=== PATIENT | male | born 1950 | race Caucasian/White ===

== ENCOUNTER → 2018-05-14 09:36 | Outpatient (CLI) | payer MEDICARE, SELFPAY ==
--- NOTE | 2018-05-14 09:52 | RAD_ITS ---
STUDY: X-RAY - LEFT SHOULDER REASON FOR EXAM: Male, 68 years old. Shoulder pain. No known injury. TECHNIQUE: 4 view(s) of the shoulder. COMPARISON: None. FINDINGS: There is minimal cephalad migration of the humeral head without significant narrowing of the space between the acromion process and humeral head. Normal acromioclavicular joint. Normal acromion. Normal humeral head and visualized proximal humerus. The soft tissue structures are unremarkable. Normal visualized pulmonary apex. RAD/Shoulder min 2 Views IMPRESSION: No significant abnormality is seen. Electronically Signed: Robert Pratt MD at 8:33 EST Tel , Service support ,
--- NOTE | 2018-05-14 09:52 | RAD_ITS ---
STUDY: X-RAY - RIGHT SHOULDER REASON FOR EXAM: Male, 68 years old. Shoulder pain. No known injury. TECHNIQUE: 4 view(s) of the shoulder. COMPARISON: None. FINDINGS: Normal glenohumeral articulation. There is degenerative arthrosis of the acromioclavicular joint. Normal acromion. Normal humeral head and visualized proximal humerus. The soft tissue structures are unremarkable. Normal visualized pulmonary apex. 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 Electronically Signed: Robert Pratt MD at 8:36 EST Tel , Service support ,
[2018-05-14 13:13] LABS: Absolute Lymphocyte Count 1.16 X10^3/ul (0.83-4.51); Absolute Neutrophil Count 3.7 X10^3/uL (2.0-7.7); Basophil# 0.02 X10^3/uL; Basophil% 0.4 % (0-1); Eosinophil# 0.12 X10^3/uL; Eosinophils% 2.2 % (0-5); Hematocrit 42.8 % (40-54); Hemoglobin 14.1 g/dl (13.0-16.5); Lymphocyte # 1.16 X10^3/ul (4.0); Mean Corp Hgb Conc 32.9 g/gl (32-36); Mean Corpuscular Hgb 30.5 pg (27.0-32.0); Mean Corpuscular Volume 92.4 fL (80-94); Mean Platelet Vol. 10.5 fl (6.2-12.0); Monocyte# 0.55 X10^3/uL; Neutrophil # 3.65 X10^3/uL (2.7-7.7); Platelet Count 201 K/mm3 (150-450); RBC Distribution Width CV 12.7 % (11.6-14.6); Red Blood Count 4.63 M/mm3 (4.6-6.2); White Blood Count 5.5 K/mm3 (4.4-11.0)
[2018-05-14 13:14] LABS: POSITIVE COUNT NO; POSITIVE DIFFERENTIAL NO; POSITIVE MORPHOLOGY NO
[2018-05-14 13:23] LABS: Vitamin D,25 Hydroxy 27.9 ng/mL (29.95-100.01)
[2018-05-14 13:24] LABS: ALB/GLOB Ratio 1.1 RATIO (0.9-2.4); AST(SGOT) 19 U/L (15-37); Alanine Aminotransfer ALT/SGPT 40 U/L (16-61); Albumin, Serum 3.7 g/dL (3.2-5.0); Alkaline Phosphatase 70 U/L (45-117); Anion Gap 9 (5-15); BUN 17 mg/dL (7-18); BUN/Creat Ratio 16.5 RATIO (10-20); Chloride 102 mmol/L (98-107); Creatinine, Serum 1.03 mg/dL (0.70-1.30); EST Glomerular Filtration Rate 76 mL/min (>60); Est Glom Filt Rate - Afr Amer 92 mL/min (>60); Globulin 3.3 g/dL (2.2-4.2); Glucose 74 mg/dL (74-106); Potassium 3.9 mmol/L (3.5-5.1); Sodium Level 142 mmol/L (136-145); Thyroid Stim Hormone (TSH) 1.09 uIU/mL (0.358-3.74)
--- OUTSIDE RECORDS SUMMARY | 2018-07-18 17:05 | XMS RPT_ITS ---
:1950 Author Organization [facility] Care Team Providers Name Role Phone Tyson, Andre Chi Attending Unavailable Tyson, Andre Chi Primary Care Unavailable Tyson, Andre Chi Referring Unavailable Tyson, Andre Chi Attending Unavailable Tyson, Andre Chi Referring Unavailable Tyson, Andre Chi Primary Care Unavailable PROBLEMS PROBLEMS DATE TYPE CONDITION / CODE ATTENDING STATUS SOURCE 05/14/2018 Unknown E55.9 - Vitamin D Tyson, Andre Chi Active [place] deficiency, Community unspecified / Hospital E55.9(ICD-10) Repository 05/14/2018 Unknown I10 - Essential Tyson, Andre Chi Active [place] (primary) [facility] hypertension / Hospital I10(ICD-10) Repository 05/14/2018 Unknown Z12.5 - Encounter Tyson, Andre Chi Active [place] for screening for [facility] malignant neoplasm [facility] prostate / Repository Z12.5(ICD-10) PROCEDURES PROCEDURES No Procedure Records FoundRESULTS RESULTS SHOULDER MIN 2 VIEWS Observed: 05/14/2018 Status: F Source: [place] [facility] RE[facility]IT[facility] Imaging Services [address] [place] [address] Shoulder min 2 Views MR#: [id number] Acct: [id number] Name: REYNALDO SEVILLA Rep #: [id number] : 1950 M 68 From: Robert Pratt MD PCP: Tyson NORTH,Andre Grayson Status: REG CLI Study: Shoulder min 2 Views Date of Exam: 05/14/18 Exam# [id number] Ordering Dr: Andre Mehta MD STUDY: X-RAY - LEFT SHOULDER REASON FOR EXAM: Male, 68 years old. Shoulder pain. No known injury. TECHNIQUE: 4 view(s) of the shoulder. COMPARISON: None. FINDINGS: There is minimal cephalad migration of the humeral head without significant narrowing of the space between the acromion process and humeral head. Normal acromioclavicular joint. Normal acromion. Normal humeral head and visualized proximal humerus. The soft tissue structures are unremarkable. Normal visualized pulmonary apex. RAD/Shoulder min 2 Views IMPRESSION: No significant abnormality is seen. Electronically Signed: Robert Pratt MD at 8:33 EST Tel , Service support , CC: Andre Mehta MD Hospice Clinical Manager: Signed SHOULDER MIN 2 VIEWS Observed: 05/14/2018 Status: F Source: [place] 9:53 AM [facility] REPOSITORY [facility] Imaging Services [address] [place], [place] [id number] Shoulder min 2 Views MR#: [id number] Acct: [id number] Name: REYNALDO SEVILLA Rep #: [id number] : 1950 68 From: Robert Pratt MD PCP: Andre Mehta MD, Chi Status: REG CLI Study: Shoulder min 2 Views Date of Exam: 05/14/18 Exam# [id number] Ordering Dr: Andre Mehta MD STUDY: X-RAY - RIGHT SHOULDER REASON FOR EXAM: Male, 68 years old. Shoulder pain. No known injury. TECHNIQUE: 4 view(s) of the shoulder. COMPARISON: None. FINDINGS: Normal glenohumeral articulation. There is degenerative arthrosis of the acromioclavicular joint. Normal acromion. Normal humeral head and visualized proximal humerus. The soft tissue structures are unremarkable. Normal visualized pulmonary apex. 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 Electronically Signed: Robert Pratt MD at 8:36 EST Tel , Service support , CC: Andre Mehta MD Hospice Clinical Manager: Signed CBC W/DIFF, AUTOMATED Collected: 05/14/2018 Status: F Source: [place] 9:41 AM [facility] REPOSITORY TYPE CODE TESTS RESULT OUT OF RANGE REFERENCE UNITS LAB L100.1000 4.4-11.0 K/mm3 Normal WBC 5.5 LAB L100.1200 4.6-6.2 M/mm3 Normal RBC 4.63 LAB L100.1300 13.0-16.5 g/dl Normal HGB 14.1 LAB L100.1400 40-54 % Normal HCT 42.8 LAB L100.1500 80-94 fL Normal MCV 92.4 LAB L100.1600 27.0-32.0 pg Normal MCH 30.5 LAB L100.1700 32-36 g/gl Normal MCHC 32.9 LAB L100.1810 11.6-14.6 % Normal RDW CV 12.7 LAB L100.1820 35.1-43.9 fl Normal RDW SD 42.0 LAB L100.1900 150-450 K/mm3 Normal PLT 201 LAB L100.2000 6.2-12.0 fl Normal MPV 10.5 LAB L100.2100 47-70 % Normal NEUT% 66.0 LAB L100.2200 19-41 % Normal LY% 21.0 LAB L100.2300 0-10 % Normal MONO% 10.0 LAB L100.2400 0-5 % Normal EO% 2.2 LAB L100.2500 0-1 % Normal BASO% 0.4 LAB L100.2550 0.0-0.9 % Normal IM GRAN % 0.400 Result Comment: IG% - Immature Granulocytes (promyelocytes, myelocytes and metamyelocytes) > 1% indicates that a LEFT SHIFT is Present. LAB L100.2620 2.0-7.7 X10 3/uL Normal Absolute Neut 3.7 LAB L100.2720 0.83-4.51 X10 3/ul Normal Absolute Lymph 1.16 Performed By: #### L100.0100 #### [facility] Laboratory [address] [place], [address] VITAMIN D,25 HYDROXY Collected: 05/14/2018 Status: F Source: [place] 9:41 AM [facility] REPOSITORY TYPE CODE TESTS RESULT OUT OF REFERENCE UNITS RANGE LAB L506.1000 29.95-100.01 ng/mL Low Vitamin D 27.9 25-OH Result Comment: Vitamin D 25(OH) Status Range Deficiency <20 ng/mL (50nmol/L) Insuffciency 20 - 30 ng/mL (50 - 75 nmol/L) Sufficiency 30 - 100 ng/mL (75 - 250 nmol/L) Toxicity >100 ng/mL (>250 nmol/L) Performed By: #### L506.1000 #### [facility] [address] [place], [address] COMPREHENSIVE METABOLIC Collected: 05/14/2018 Status: F [facility] AM [facility] REPOSITORY TYPE CODE TESTS RESULT OUT OF RANGE REFERENCE UNITS LAB L501.0100 74-106 mg/dL Normal GLU 74 Result Comment: Please note revised GLUCOSE reference range effective 2017. LAB L501.1000 7-18 mg/dL Normal BUN 17 LAB L501.1100 0.70-1.30 mg/dL Normal CREAT,SERUM 1.03 Result Comment: The validity of the calculated GFR AND GFRAA in patients over 70 years has not been determined. Clinical correlation is essential. LAB L501.1110 >60 mL/min Normal EST GFR 76 Result Comment: Non- GFR Calc LAB L501.1115 >60 mL/min Normal EST GFR - AA 92 Result Comment: GFR Calc LAB L501.1300 10-20 RATIO Normal BUN/CRE 16.5 LAB L501.1500 6.4-8.2 g/dL T Normal PROT 7.0 LAB L501.1800 3.2-5.0 g/dL Normal ALB 3.7 LAB L501.1950 2.2-4.2 g/dL Normal GLOB 3.3 LAB L501.2000 0.9-2.4 RATIO Normal A/G 1.1 LAB L501.2200 8.5-10.1 mg/dL CA Normal 9.0 LAB L501.4100 15-37 U/L Normal AST 19 LAB L501.4305 45-117 U/L Normal ALK P 70 LAB L501.4405 16-61 U/L Normal ALT 40 LAB L501.4600 0.20-1.00 mg/dL T Normal BILI 0.70 LAB L501.5300 136-145 mmol/L NA Normal 142 LAB L501.5600 3.5-5.1 mmol/L K Normal 3.9 LAB L501.5900 98-107 mmol/L CL Normal 102 LAB L501.6100 21.0-32.0 mmol/L Normal CO2 31.0 LAB L501.6200 5-15 Normal GAP 9 Performed By: #### L500.4050, L501.9520, L501.9910 #### [facility] [address] [place], [place], [id number] THYROID STIM HORMONE Collected: 05/14/2018 Status: F Source: [place] ([facility]) 9:41 AM [facility] REPOSITORY TYPE CODE TESTS RESULT OUT OF RANGE REFERENCE UNITS LAB L501.9520 0.358-3.74 uIU/mL Normal TSH 1.09 Performed By: #### L500.4050, L501.9520, L501.9910 #### [facility] [address] [place], [place], [id number] PSA,TOTAL - ANNUAL Collected: 05/14/2018 Status: F Source: [place] SCREEN 9:41 AM [facility] REPOSITORY TYPE CODE TESTS RESULT OUT OF RANGE REFERENCE UNITS LAB L501.9910 0.00-4.00 ng/mL Normal PSA,TOT 0.50 SCREEN Result Comment: This test was performed using the TPSA assay method for the U*tique chemistry system. Values obtained with different assay methods cannot be used interchangably. When changing PSA assays in the course of monitoring a patient, additional sequential testing should be carried out to confirm baseline values. Performed By: #### L500.4050, L501.9520, L501.9910 #### [facility] [address] [place], [address] ALLERGIES ALLERGIES DATE TYPE / CODE NAME / CODE REACTION SEVERITY SOURCE 06/13/2015 Drug nitroglycer Anaphylaxis Unknown [facility] Allergy/4160 in/[id number] Hospital 72704(SNOMED 83(RXNORM) Repository CT) ENCOUNTERS ENCOUNTERS ADMIT/DISCHARGE ACCOUNT ADMITTING ENCOUNTER LOCATION SOURCE NUMBER CLASS 05/21/2018 [id number] Ambulatory [place] 0 [facility] ing:PT Repository 05/14/2018 [id number] Ambulatory [place] 7 [facility] ing:POLAB3 Repository PAYERS PAYERS ENCOUNTER GUARANTOR PAYER SUBSCRIBER SOURCE 05/21/2018 REYNALDO Massey [id number] Insurance:[facility]: Community SETTLERS MEDIC[id number] Repository [address]Ffd: 330 [id number] [phone] (HP) Date:[id number] [address] [address]KO: 05/21/2018 Secondary NOT GIVENUNK [place] Insurance:SELF PAY [facility] Number: Effective Repository Date:2018-05-18 05/14/2018 REYNALDO Pennyoster [id number] Insurance:[facility]: Community SETTLERS MEDICAREPolicy [id number] Number: Repository [address]Fvq: 330 [id number] [phone] (HP) Date:[id number] [address] [address]DC: 05/14/2018 Secondary NOT GIVENUNK [place] Insurance:SELF PAY [facility] Number: Effective Repository Date:2018-05-14
== END ==
PROVIDERS: Family Provider Family Medicine Geriatric Medicine; PCP Family Medicine Geriatric Medicine; Referring Provider Family Medicine Geriatric Medicine; Visit Provider Family Medicine Geriatric Medicine
DX: E55.9 Vitamin D deficiency, unspecified (principal); I10 Essential (primary) hypertension; Z12.5 Encounter for screening for malignant neoplasm of prostate; M75.50 Bursitis of unspecified shoulder
CPT/HCPCS: 36415; 73030; 80053; 82306; 84153; 84443; 85025; G0103

== ENCOUNTER 2018-06-25 08:30 | Outpatient (RCR) | payer MEDICARE, SELFPAY ==
--- NOTE | 2018-05-21 11:10 | HP.PTEVAL ---
Patient's Visit Information REYNALDO SEVILLA is a 68 year old M referred to Physical Therapy by Andre Mehta MD with a diagnosis of YFN ROTATOR CUFF TENDINOPATHY/SYNDROME. Date of Evaluation: 05/21/18 Physical Therapist: Edith Reilly PT, Cert MDT - Visit Plan Frequency: 2-3x /Week Duration: 4-6 Weeks Plan: MANUAL YFN SHOULDER MOBILIZATION AND PROM. POSTURE CORRECTION/STRENGTHENING, INSTRUCTION IN APPROPRIATE BODY MECHANICS AND ACTIVITY MODIFICATIONS. YFN SHOULDER MODALITIES NEEDED. YFN UE ROM, STRETCHING AND STRENGTHENING. HEP INSTRUCTION. PATIENT WILL NEED TO WORK AROUND HIS OUT OF TOWN SCHEDULE. CONSIDER AND DISCUSS DRY NEEDLING WITH PATIENT. - Subjective Findings: Diagnosis: YFN ROTATOR CUFF TENDINOPATHY/SYNDROME. 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 Disability: NO. Present symptoms: YFN SHOULDER PAIN. Present since: RIGHT SHOULDER PAIN STARTED ABOUT A YEAR ABO AND HAS GOT WORSE IN THE LAST MONTH OR SO. LEFT SHOULDER PAIN STARTED A COUPLE MONTHS AGO AND WORSENING. Pain Scale: Worst - 5/10Least - 0/10. Currently: 0/10. Commenced as a result of: NO APPARENT REASON. Symptoms at onset: RIGHT SHOULDER. Worse: BRINGING ARMS DOWN AFTER STRETCHING OVER-HEAD, REACHING UP, REACHING OUT TO THE SIDE. PUTTING SHIRT ON. TWISTING ARMS WHEN REACHING CERTAIN WAYS. Better: SOMETIMES REPETITION. Disturbed sleep: YES. Previous history/Previous treatment: UNREMARKABLE. Dizziness: NO. Tinnitis: NO. Nausea: NO. Shortness of Breath: NO. Difficulty Swollowing: NO. Gait: NORMAL. Accidents: NO. Unexplained weight loss: NO. Imaging: RECENT SHOULDER X-RAYS - LEFT SHOULDER X-RAY IN EMR IS NORMAL. PMH/Recent major surgery: HTN, HIGH CHOLESTEROL. LBP. NECK STIFFNESS THAT PATIENT RELATES TO RUNNING IN THE FAMILY. PLOF (Prior Level of Function): UNLIMITED - Objective Sitting Posture/Standing Posture: POOR. FORWARD HEAD AND ROUNDED SHOULDERS. NO TORTICOLLIS. Motor deficit: YFN UE STRENGTH 5/5 WITH MMT'ING IN AVAILABLE ROM EXCEPT RIGHT ER AND ABD 4-/5 AND LEFT 4/5. STRONG YFN KNOWLEDGE ARCHITECT STRENGTH 80+ LBS. ROM deficit: YFN UE'S WFL EXCEPT SHOULDERS FOLLOWS: RIGHT SHOULDER FLEX 140 DEG, IR 53 DEG AND ER 68 DEG. LEFT SHOULDER FLEX 163 DEG, IR 65 DEG AND ER 80 DEG. YFN SHOULDER ABD LIMITATION ALSO BUT NOT MEASURED. Cervical Mvmt Loss: Flex: NIL. Pro: NIL. Ext: MOD. Ret: MOD TO [place]. RSB: MOD. LSB: MOD TO [place]. R Rot: MOD. L Rot: MOD TO [place]. Postural strength: POOR - Goals Goal 1:: DECREASE C/O YFN SHOULDER PAIN Goal Time Frame: 4-6 Weeks Goal 2:: IMPROVE REACHING AND SLEEP FUNCTION Goal Time Frame: 4-6 Weeks Goal 3:: INDEP WITH HEP FOR CONTINUED IMPROVEMENT ONCE FORMAL PHYSICAL THERAPY CONCLUDES. Goal Time Frame: 4-6 Weeks - Rehabilitation Potential Rehabilitation Potential: Good - Anticipated Interventions Patient/Client Instruction: Educate patient on: Condition, Plan of Care, Risk Factors, Benefits of Fitness Program For the Purpose of:: To improve self management Therapeutic Exercise to Include: Strength training, Body mechanics, Postural training For the Purpose of:: To decrease pain, To increase ROM, To improve muscle performance and motor function, To increase tolerance to activity/condition/position, To improve ability of physical actions for home/community/work/leisure Manual Therapy Techniques to Include: Mobilization, Passive ROM, Functional dry needling, Soft tissue mobilization For the Purpose of:: To decrease pain, To increase ROM Cryotherapy (ice pack, ice massage): Yes Thermo therapy (hot pack): Yes Ultrasound (thermal/non thermal): Yes For the Purpose of:: To decrease pain, To increase ROM, To improve nutrient delivery to tissue Thank you for the opportunity to evaluate your patient. For Medicare and Medicare HMO plans, please review the plan of care and approve it. It will need to be FAXED BACK to us at [phone] for Medicare purposes. For Medicare only, by signing this I certify the plan of care. Please let me know if there are questions or concerns regarding this plan of care. Physician Signature: Date:
--- NOTE | 2018-06-18 10:06 | HP.PTREVAL ---
Andre Mehta MD, It has been my pleasure to treat REYNALDO SEVILLA over the last 5 visits for YFN ROTATOR CUFF TENDINOPATHY/SYNDROME. Please see the progress note below for an update on the physical therapy plan of care! Subjective: I THINK I AM GETTING A LITTLE BIT BETTER. NOW I CAN GLENDY GET MY ARMS UP IF I AM VERY CAREFUL. DID EX'S OVER TWO WEEKS OF VACATION. PATIENT REPORTS HE CAN ALSO TELL AN IMPROVEMENT IN HIS POSTURE. Objective/Function: OBJECTIVELY THERE ARE MINIMAL IMPROVEMENTS SEEN SINCE EVAL BUT PATIENT IS REPORTING A LITTLE BIT OF IMPROVEMENT AND HE IS BECOMING INDEP WITH A HEP. HE APPEARED TO RESPOND WELL TO US TODAY. SLOW PROGRESS IS BEING MADE TOWARD PT GOALS OF DECREASING PAIN AND HEP BUT NOT IN TERMS OF FUNCTION. QUICK DASH QUESTIONAIRE SCORE HAS WORSENED FROM 14 TO 21 Plan Plan: DISCHARGE INDEP EX'S TO HEP AND FOCUS ON MANUAL THERAPY IN CLINIC FOR YFN SHOULDER MOBS AND ROM. ASSESS RESPONSE TO US AND USE SHOULDER MODALITIES NEEDED. DISCUSS POSSIBLE BENEFITS OF DRY NEEDING WITH PATIENT. ADD CERVICAL REPEATED RETRACTION IN SITTING EX TOLERATED. Goals Goal 1:: DECREASE C/O YFN SHOULDER PAIN Goal Time Frame: 4-6 Weeks Goal Progress: Progressing Goal 2:: IMPROVE REACHING AND SLEEP FUNCTION Goal Time Frame: 4-6 Weeks Goal Progress: Not Progressing Goal 3:: INDEP WITH HEP FOR CONTINUED IMPROVEMENT ONCE FORMAL PHYSICAL THERAPY CONCLUDES. Goal Time Frame: 4-6 Weeks Goal Progress: Progressing Anticipated Interventions Patient/Client Instruction: Educate patient on: Condition, Plan of Care, Risk Factors, Benefits of Fitness Program For the Purpose of:: To improve self management Therapeutic Exercise to Include: Strength training, Body mechanics, Postural training For the Purpose of:: To decrease pain, To increase ROM, To improve muscle performance and motor function, To increase tolerance to activity/condition/position, To improve ability of physical actions for home/community/work/leisure Manual Therapy Techniques to Include: Mobilization, Passive ROM, Functional dry needling, Soft tissue mobilization For the Purpose of:: To decrease pain, To increase ROM Cryotherapy (ice pack, ice massage): Yes Thermo therapy (hot pack): Yes Ultrasound (thermal/non thermal): Yes For the Purpose of:: To decrease pain, To increase ROM, To improve nutrient delivery to tissue Please do not hesitate to contact me at [phone] by phone or if you have questions or concerns regarding this new plan of care! Sincerely, Edith Reilly, PT, Cert MDT
--- NOTE | 2018-06-25 09:34 | HP.PTDCSUM_ITS ---
HP - PT D/C Summary It has been my pleasure to treat REYNALDO SEVILLA under orders from Andre Mehta MD, for the diagnosis of YFN ROTATOR CUFF TENDINOPATHY/SYNDROME for a total of 8 visit(s). Discharge Date: Please see the following information for a summary of their discharge status. - Subjective Subjective: PATIENT REPORTS THE PAIN IN HIS SHOULDERS INS'T DISTURBING HIS SLEEP NOW. PATIENT REPORTS THE PAIN STILL ONLY COMES WITH CERTAIN MVMTS WITH CERTAIN SPEEDS. CONSIDERING SEEING A SHOULDER SPECIALIST. PATIENT REPORTS HIS LEFT ARM IS A LITTLE LOOSER AND HE DOESN'T HAVE THE PAIN AT NIGHT SLEEPING NOW. I THINK MY POSTURE HAS IMPROVED SOME. STATES HE IS DOING HIS EX'S ON A REGULAR BASIS. STATES HE IS ALSO WORKING ON HIS POSTURE AND USING SUPPORT IN LOW BACK. - Pain RIGHT SHOULDER Pain Intensity (Out of 10): 0 LEFT SHOULDER Pain Intensity (Out of 10): 0 - Overall Improvement % Improvement: 20 - Objective Objective/Function: DECREASED YFN SHOULDER ROM WITH TESTING TODAY BUT PATIENT REPORTS HIS ROM CHANGES RANDOMLY. OVER ALL HE FEELS SOME IMPROVEMENT AND NOT WORSE. PATIENT STILL HAS SIGNIFICANT YFN SHOULDER DYSFUNCTION. HIS CERVICAL ROM HAS ACTUALLY IMPROVED SOME BUT STILL LIMITED. UPON EXAM TODAY: Motor deficit: YFN UE STRENGTH 5/5 WITH MMT'ING IN AVAILABLE ROM EXCEPT RIGHT ER AND ABD 4-/5 AND LEFT 4/5. 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 ROM deficit: YFN UE'S WFL EXCEPT SHOULDERS FOLLOWS: RIGHT SHOULDER FLEX 143 DEG, IR 58 DEG AND ER 55 DEG. LEFT SHOULDER FLEX 154 DEG, IR 65 DEG AND ER 43 DEG. YFN SHOULDER ABD SIGNIFICANT LIMITATION TO LESS THAN 90 DEG YFN ACTIVELY IN SITTING. Cervical Mvmt Loss: Flex: MIN. Pro: NIL. Ext: MOD. Ret: MOD TO DAVONTE. RSB: MOD. LSB: MOD. R Rot: MOD. L Rot: MOD. QUICK DASH QUESTIONAIRE SCORE HAS NOT IMPROVED. - Goals Goal 1:: DECREASE C/O YFN SHOULDER PAIN Goal Progress: Not Progressing Goal 2:: IMPROVE REACHING AND SLEEP FUNCTION Goal Progress: Not Progressing Goal 3:: INDEP WITH HEP FOR CONTINUED IMPROVEMENT ONCE FORMAL PHYSICAL THERAPY CONCLUDES. Goal Progress: Not Progressing - Plan Plan: D/C TO HEP AND PHYSICIAN FOLLOW UP DO CONTINUED SIGNIFICANT YFN SHOULDER, POSTURE AND NECK DYSFUNCTION. PATIENT AGREEABLE TO DISCHARGE. - D/C Information If there are questions or concerns regarding this patient's physical therapy, please feel free to call me at [phone]. Thank you for the referral of this patient. Sincerely, Edith Reilly PT, Cert MDT
== END 2018-06-25 19:00 | disposition home or self-care (01) ==
LOC: PT 08:30
PROVIDERS: Family Provider Family Medicine Geriatric Medicine; PCP Family Medicine Geriatric Medicine; Referring Provider Family Medicine Geriatric Medicine; Visit Provider Family Medicine Geriatric Medicine
DX: M75.50 Bursitis of unspecified shoulder (principal)
CPT/HCPCS: 97035; 97110; 97140; 97161; 97530

== ENCOUNTER → 2018-08-02 | Outpatient (CLI) | payer MEDICARE, SELFPAY ==
--- NOTE | 2018-08-02 13:00 | MRI_ITS ---
STUDY: MRI RIGHT SHOULDER REASON FOR EXAM: Right shoulder pain for 5 months, no specific injury. TECHNIQUE: Standardized fat and water weighted pulse sequences were obtained in all 3 orthogonal planes. COMPARISON: Radiographs 05/14/2018. FINDINGS: There is mild supraspinatus tendinosis (T2 sagittal images 18, 19) without discrete tendon tear. Normal infraspinatus tendon. Normal subscapularis tendon. Normal teres minor tendon. Normal supraspinatus muscle. Normal infraspinatus muscle. Normal subscapularis muscle. Normal teres minor muscle. Normal glenohumeral articulation. There is very mild cystic change of the greater tuberosity. Normal biceps labral complex. Normal intracapsular long biceps tendon. Normal labrum. Normal capsulo- ligamentous complex. There is acromioclavicular arthrosis with undersurface osteophytes effacing the subacromial fat (T2 sagittal image 9). There is a Type II morphology (curved), with a neutral orientation. There is a small volume of subacromial-subdeltoid bursal fluid (T2 coronal images 13-15). Normal visualized coracohumeral and coracoacromial ligaments. Normal deltoid muscle. Normal trapezius muscle. MRI/Upper Ext Joint Only(Routine) IMPRESSION: Mild supraspinatus tendinosis without demonstrated rotator cuff tear. Acromioclavicular arthrosis. Mild subacromial-subdeltoid bursitis. Electronically Signed: Mauro Dos Santos MD at 14:31 EDT Tel , Service support ,
--- NOTE | 2018-08-02 13:45 | MRI_ITS ---
STUDY: MRI LEFT SHOULDER REASON FOR EXAM: Left shoulder pain for 5 months, no specific injury. TECHNIQUE: Standardized fat and water weighted pulse sequences were obtained in all 3 orthogonal planes. COMPARISON: Radiographs 05/14/2018. FINDINGS: There is mild supraspinatus tendinosis (proton density coronal images 13, 14) without discrete tendon tear. Normal infraspinatus tendon. Normal subscapularis tendon. Normal teres minor tendon. Normal supraspinatus muscle. Normal infraspinatus muscle. Normal subscapularis muscle. Normal teres minor muscle. Normal glenohumeral articulation. There is mild cystic change of the greater tuberosity. Normal biceps labral complex. Normal intracapsular long biceps tendon. Normal labrum. Normal capsulo- ligamentous complex. There is acromioclavicular arthrosis with small undersurface osteophytes of the distal clavicle effacing the subacromial fat (T2 sagittal images 9, 10). There is a Type I morphology (flat undersurface), with a neutral orientation. There is a small volume of subacromial-subdeltoid bursal fluid (T2 coronal images 10-12). Normal visualized coracohumeral and coracoacromial ligaments. Normal deltoid muscle. Normal trapezius muscle. MRI/Upper Ext Joint Only(Routine) IMPRESSION: Mild supraspinatus tendinosis without demonstrated rotator cuff tear. Acromioclavicular arthrosis. Mild subacromial-subdeltoid bursitis. Electronically Signed: Mauro Dos Santos MD at 14:36 EDT Tel , Service support ,
== END | disposition home or self-care (01) ==
PROVIDERS: Family Provider Family Medicine Geriatric Medicine; PCP Family Medicine Geriatric Medicine; Referring Provider Family Medicine Geriatric Medicine; Visit Provider Family Medicine Geriatric Medicine
DX: M75.100 Unspecified rotator cuff tear or rupture of unspecified shoulder, not specified as traumatic (principal); M25.519 Pain in unspecified shoulder
CPT/HCPCS: 73221

== ENCOUNTER → 2019-05-18 09:23 | Outpatient (CLI) | payer BC, SELFPAY ==
[2015-06-14 02:23] VITALS: BMI 22.5
[2019-05-18 12:16] LABS: Absolute Lymphocyte Count 1.06 X10^3/uL (0.83-4.51); Absolute Neutrophil Count 2.5 X10^3/uL (2.0-7.7); Basophil# 0.04 X10^3/uL; Basophil% 0.9 % (0-1); Eosinophil# 0.17 X10^3/uL; Hematocrit 45.9 % (40-54); Hemoglobin 15.1 g/dL (13.0-16.5); Lymphocyte # 1.06 X10^3/ul (4.0); Lymphocyte % 24.8 % (19-41); Mean Corp Hgb Conc 32.9 g/dL (32-36); Mean Corpuscular Hgb 30.4 pg (27.0-32.0); Mean Corpuscular Volume 92.5 fL (80-94); Mean Platelet Vol. 10.9 fl (6.2-12.0); Monocyte# 0.46 X10^3/uL; Monocyte% 10.8 % (0-10); NRBC Flagged by Analyzer 0 % (0-5); Neutrophil # 2.53 X10^3/uL (2.7-7.7); Neutrophil % 59.3 % (47-70); Platelet Count 218 K/mm3 (150-450); RBC Distribution Width CV 12.3 % (11.6-14.6); RBC Distribution Width SD 41.5 fl (35.1-43.9); Red Blood Count 4.96 M/mm3 (4.6-6.2); White Blood Count 4.3 K/mm3 (4.4-11.0)
[2019-05-18 12:35] LABS: ALB/GLOB Ratio 1.2 RATIO (0.9-2.4); AST(SGOT) 19 U/L (15-37); Alanine Aminotransfer ALT/SGPT 42 U/L (16-61); Albumin, Serum 3.7 g/dL (3.2-5.0); Alkaline Phosphatase 63 U/L (45-117); Anion Gap 2 (5-15); BUN 17 mg/dL (7-18); BUN/Creat Ratio 19.3 RATIO (10-20); Calcium,Total 8.9 mg/dL (8.5-10.1); Chloride 108 mmol/L (98-107); Creatinine, Serum 0.88 mg/dL (0.70-1.30); EST Glomerular Filtration Rate 91 mL/min (>60); Est Glom Filt Rate - Afr Amer 110 mL/min (>60); Globulin 3.2 g/dL (2.2-4.2); Glucose 91 mg/dL (74-106); Potassium 3.8 mmol/L (3.5-5.1); Protein, Total 6.9 g/dL (6.4-8.2); Sodium Level 140 mmol/L (136-145); Thyroid Stim Hormone (TSH) 1.28 uIU/mL (0.358-3.74)
== END ==
PROVIDERS: PCP Family Medicine Geriatric Medicine; Visit Provider Family Medicine Geriatric Medicine
DX: I10 Essential (primary) hypertension (principal); E55.9 Vitamin D deficiency, unspecified
CPT/HCPCS: 36415; 80053; 82306; 84443; 85025

== ENCOUNTER → 2020-05-23 09:07 | Outpatient (CLI) | payer BC, SELFPAY ==
[2020-05-23 12:11] LABS: Absolute Neutrophil Count 2.9 X10^3/uL (2.0-7.7); Basophil# 0.03 X10^3/uL; Basophil% 0.6 % (0-1); Eosinophil# 0.15 X10^3/uL; Eosinophils% 3.1 % (0-5); Hematocrit 44.5 % (40-54); Hemoglobin 14.2 g/dL (13.0-16.5); Lymphocyte % 26.9 % (19-41); Mean Corp Hgb Conc 31.9 g/dL (32-36); Mean Corpuscular Hgb 29.6 pg (27.0-32.0); Mean Corpuscular Volume 92.7 fL (80-94); Mean Platelet Vol. 10.8 fl (6.2-12.0); Monocyte# 0.45 X10^3/uL; Monocyte% 9.3 % (0-10); NRBC Flagged by Analyzer 0 % (0-5); Neutrophil # 2.89 X10^3/uL (2.7-7.7); Neutrophil % 59.7 % (47-70); Platelet Count 193 K/mm3 (150-450); RBC Distribution Width CV 12.3 % (11.6-14.6); RBC Distribution Width SD 42.5 fl (35.1-43.9); White Blood Count 4.8 K/mm3 (4.4-11.0)
[2020-05-23 12:38] LABS: Vitamin D,25 Hydroxy 34.6 ng/mL
[2020-05-23 12:52] LABS: ALB/GLOB Ratio 1.1 RATIO (0.9-2.4); AST(SGOT) 20 U/L (15-37); Alanine Aminotransfer ALT/SGPT 34 U/L (16-61); Albumin, Serum 3.6 g/dL (3.2-5.0); Alkaline Phosphatase 72 U/L (45-117); Anion Gap 6 (5-15); BUN 16 mg/dL (7-18); BUN/Creat Ratio 16.5 RATIO (10-20); Calcium,Total 8.9 mg/dL (8.5-10.1); Chloride 102 mmol/L (98-107); Creatinine, Serum 0.97 mg/dL (0.70-1.30); EST Glomerular Filtration Rate 81 mL/min (>60); Est Glom Filt Rate - Afr Amer 98 mL/min (>60); Globulin 3.3 g/dL (2.2-4.2); Glucose 75 mg/dL (74-106); Potassium 3.7 mmol/L (3.5-5.1); Protein, Total 6.9 g/dL (6.4-8.2); Sodium Level 139 mmol/L (136-145); Thyroid Stim Hormone (TSH) 1.68 uIU/mL (0.358-3.74)
== END ==
PROVIDERS: PCP Family Medicine Geriatric Medicine; Visit Provider Family Medicine Geriatric Medicine
DX: E55.9 Vitamin D deficiency, unspecified (principal); I10 Essential (primary) hypertension
CPT/HCPCS: 36415; 80053; 82306; 84443; 85025

== ENCOUNTER 2021-05-29 09:00 | Outpatient (CLI) | payer MEDICARE, SELFPAY ==
[2021-05-29 12:43] LABS: Absolute Lymphocyte Count 1.44 X10^3/uL (0.83-4.51); Basophil# 0.03 X10^3/uL; Basophil% 0.6 % (0-1); Eosinophil# 0.15 X10^3/uL; Eosinophils% 2.9 % (0-5); Hematocrit 41.7 % (40-54); Hemoglobin 14.1 g/dL (13.0-16.5); Lymphocyte # 1.44 X10^3/ul (0.83-4.51); Mean Corp Hgb Conc 33.8 g/dL (32-36); Mean Corpuscular Hgb 31.1 pg (27.0-32.0); Mean Corpuscular Volume 91.9 fL (80-94); Mean Platelet Vol. 11.1 fl (6.2-12.0); Monocyte# 0.57 X10^3/uL; Monocyte% 11.1 % (0-10); NRBC Flagged by Analyzer 0 % (0-5); Neutrophil # 2.95 X10^3/uL (2.7-7.7); Neutrophil % 57.2 % (47-70); Platelet Count 181 K/mm3 (150-450); RBC Distribution Width CV 12.5 % (11.6-14.6); RBC Distribution Width SD 42.1 fl (35.1-43.9); Red Blood Count 4.54 M/mm3 (4.6-6.2); White Blood Count 5.2 K/mm3 (4.4-11.0)
[2021-05-29 13:00] LABS: Vitamin D,25 Hydroxy 42.2 ng/mL
[2021-05-29 13:11] LABS: ALB/GLOB Ratio 1.2 RATIO (0.9-2.4); AST(SGOT) 19 U/L (15-37); Alanine Aminotransfer ALT/SGPT 36 U/L (16-61); Albumin, Serum 3.6 g/dL (3.2-5.0); Alkaline Phosphatase 59 U/L (45-117); Anion Gap 6 (5-15); BUN 16 mg/dL (7-18); Calcium,Total 8.8 mg/dL (8.5-10.1); Chloride 104 mmol/L (98-107); Creatinine, Serum 0.94 mg/dL (0.70-1.30); EST Glomerular Filtration Rate 84 mL/min (>60); Est Glom Filt Rate - Afr Amer 101 mL/min (>60); Globulin 3.1 g/dL (2.2-4.2); Glucose 94 mg/dL (74-106); Potassium 3.8 mmol/L (3.5-5.1); Protein, Total 6.7 g/dL (6.4-8.2); Sodium Level 139 mmol/L (136-145); Thyroid Stim Hormone (TSH) 1.32 uIU/mL (0.358-3.74)
== END 2021-05-29 23:59 | disposition short-term general hospital (02) ==
LOC: POLAB3 09:04
PROVIDERS: PCP Family Medicine Geriatric Medicine; Visit Provider Family Medicine Geriatric Medicine
DX: I10 Essential (primary) hypertension (principal); E55.9 Vitamin D deficiency, unspecified
CPT/HCPCS: 36415; 80053; 82306; 84443; 85025

== ENCOUNTER → 2022-05-30 | Outpatient (CLI) | payer MEDICARE, SELFPAY ==
[2022-05-30 10:58] LABS: Absolute Lymphocyte Count 1.16 X10^3/uL (0.83-4.51); Absolute Neutrophil Count 3.1 X10^3/uL (2.0-7.7); Basophil# 0.03 X10^3/uL; Basophil% 0.6 % (0-1); Eosinophil# 0.18 X10^3/uL; Eosinophils% 3.7 % (0-5); Hematocrit 45.4 % (40-54); Hemoglobin 14.5 g/dL (13.0-16.5); Lymphocyte # 1.16 X10^3/ul (0.83-4.51); Lymphocyte % 23.5 % (19-41); Mean Corp Hgb Conc 31.9 g/dL (32-36); Mean Corpuscular Volume 93.8 fL (80-94); Mean Platelet Vol. 10.6 fl (6.2-12.0); Monocyte# 0.49 X10^3/uL; Monocyte% 9.9 % (0-10); NRBC Flagged by Analyzer 0 % (0-5); Neutrophil # 3.06 X10^3/uL (2.7-7.7); Neutrophil % 62.1 % (47-70); Platelet Count 195 K/mm3 (150-450); RBC Distribution Width CV 12.4 % (11.6-14.6); RBC Distribution Width SD 42.5 fl (35.1-43.9); Red Blood Count 4.84 M/mm3 (4.6-6.2); White Blood Count 4.9 K/mm3 (4.4-11.0)
[2022-05-30 11:34] LABS: Vitamin D,25 Hydroxy 37.9 ng/mL
[2022-05-30 11:43] LABS: ALB/GLOB Ratio 1.1 RATIO (0.9-2.4); AST(SGOT) 18 U/L (15-37); Alanine Aminotransfer ALT/SGPT 33 U/L (16-61); Albumin, Serum 3.7 g/dL (3.2-5.0); Alkaline Phosphatase 69 U/L (45-117); Anion Gap 7 (5-15); BUN 19 mg/dL (7-18); BUN/Creat Ratio 19.4 RATIO (10-20); Chloride 106 mmol/L (98-107); Creatinine, Serum 0.98 mg/dL (0.70-1.30); EST Glomerular Filtration Rate 79 mL/min (>60); Est Glom Filt Rate - Afr Amer 96 mL/min (>60); Globulin 3.3 g/dL (2.2-4.2); Glucose 93 mg/dL (74-106); Potassium 3.7 mmol/L (3.5-5.1); Sodium Level 145 mmol/L (136-145); Thyroid Stim Hormone (TSH) 1.14 uIU/mL (0.358-3.74)
== END | disposition home or self-care (01) ==
PROVIDERS: PCP Family Medicine Geriatric Medicine; Referring Provider Family Medicine Geriatric Medicine; Visit Provider Family Medicine Geriatric Medicine
DX: E55.9 Vitamin D deficiency, unspecified (principal); I10 Essential (primary) hypertension
CPT/HCPCS: 36415; 80053; 82306; 84443; 85025

== ENCOUNTER → 2023-04-06 | Outpatient (CLI) | payer MEDICARE, SELFPAY | END | disposition home or self-care (01) | PROVIDERS: PCP Family Medicine Geriatric Medicine; Referring Provider Family Medicine Geriatric Medicine; Visit Provider Family Medicine Geriatric Medicine | DX: R68.83 Chills (without fever) (principal) | CPT/HCPCS: 87635; 87804; 87807; C9803 ==

== ENCOUNTER → 2023-06-03 | Outpatient (CLI) | payer MEDICARE, SELFPAY ==
--- OUTSIDE RECORDS SUMMARY | 2023-06-03 10:23 | XMS RPT_ITS | CCD ---
Author Name Unknown Address [address] [place] [address] Organization [facility] Results Test Name Value Interpretation Reference Range Facil ity Summary Purpose Family History No Family History Records Found Advance Directives No Advanced Directives Records Found Procedure Findings Note HNO ID: [id number] Author: Ej Victor Service: Gastroenterology Author Type: Physician Type: Brief Op Note Filed: 06/27/2019 1:15 PM Note Text: BRIEF OPERATIVE NOTE PATIENT NAME: Moses Norwood LOG ID: [id number] Surgery Date: 06/27/2019 Surgeon(s) and [employer] Fabricator(s): Davide Victor MD -Primary Procedure(s): Procedure(s) (LRB): COLONOSCOPY (N/A) Anesthesia: Procedural Sedation Findings: Normal exam except for diverticulosis Estimated Blood Loss: 0 ml Specimens: None Preop Diagnosis: Family history of colon cancer [Z80.0] Postop Diagnosis: Family history of colon cancer [Z80.0] SIGNATURE: Davide Victor MD DATE: June 27, 2019 TIME: 1:15 PM Additional Source Comments (unrecognized sect ion and content) No Status Records Found INFORMATION SOURCE (unrecogn ized section and content) FOR RECORDS PERTAINING TO PATIENTS WHO ARE OR HAVE BEEN ENROLLED IN A CHEMICAL DEPENDENCY/SUBSTANCEABUSE PROGRAM, SOME INFORMATION MAY BE OMITTED. This clinical summary was aggregated from multiple sources. Caution should be exercised in using it in the provision of clinical care. This summary normalizes information from multiple sources, and as a consequence, information in this document may materially change the coding, format and clinical context of patient data. In addition, data may be omitted in some cases. CLINICAL DECISIONS SHOULD BE BASED ON THE PRIMARY CLINICAL RECORDS. [employer] provides no warranty or guarantee of the accuracy or completeness of information in this document.
[2023-06-03 11:49] LABS: Absolute Lymphocyte Count 1.27 X10^3/uL (0.83-4.51); Absolute Neutrophil Count 3.4 X10^3/uL (2.0-7.7); Basophil# 0.04 X10^3/uL; Basophil% 0.7 % (0-1); Eosinophil# 0.15 X10^3/uL; Eosinophils% 2.8 % (0-5); Hematocrit 42.4 % (40-54); Hemoglobin 13.5 g/dL (13.0-16.5); Lymphocyte # 1.27 X10^3/ul (0.83-4.51); Lymphocyte % 23.5 % (19-41); Mean Corp Hgb Conc 31.8 g/dL (32-36); Mean Corpuscular Hgb 29.9 pg (27.0-32.0); Mean Corpuscular Volume 93.8 fL (80-94); Mean Platelet Vol. 10.8 fl (6.2-12.0); Monocyte# 0.56 X10^3/uL; Monocyte% 10.4 % (0-10); NRBC Flagged by Analyzer 0 % (0-5); Neutrophil # 3.35 X10^3/uL (2.7-7.7); Neutrophil % 61.9 % (47-70); Platelet Count 192 K/mm3 (150-450); RBC Distribution Width CV 13.6 % (11.6-14.6); RBC Distribution Width SD 46.7 fl (35.1-43.9); Red Blood Count 4.52 M/mm3 (4.6-6.2); White Blood Count 5.4 K/mm3 (4.4-11.0)
[2023-06-03 12:04] LABS: Vitamin D,25 Hydroxy 34.7 ng/mL
[2023-06-03 12:08] LABS: ALB/GLOB Ratio 1.1 RATIO (0.9-2.4); AST(SGOT) 23 U/L (15-37); Alanine Aminotransfer ALT/SGPT 38 U/L (16-61); Albumin, Serum 3.4 g/dL (3.2-5.0); Alkaline Phosphatase 83 U/L (45-117); Anion Gap 2 (5-15); BUN 16 mg/dL (7-18); BUN/Creat Ratio 17.2 RATIO (10-20); Calcium,Total 9.1 mg/dL (8.5-10.1); Chloride 108 mmol/L (98-107); Creatinine, Serum 0.93 mg/dL (0.70-1.30); EST Glomerular Filtration Rate 84 mL/min (>60); Est Glom Filt Rate - Afr Amer 102 mL/min (>60); Globulin 3.1 g/dL (2.2-4.2); Glucose 96 mg/dL (74-106); Protein, Total 6.5 g/dL (6.4-8.2); Sodium Level 142 mmol/L (136-145); Thyroid Stim Hormone (TSH) 0.89 uIU/mL (0.358-3.74)
== END | disposition home or self-care (01) ==
LOC: POLAB3 09:14
PROVIDERS: PCP Family Medicine Geriatric Medicine; Visit Provider Family Medicine Geriatric Medicine
DX: I10 Essential (primary) hypertension (principal); E55.9 Vitamin D deficiency, unspecified
CPT/HCPCS: 36415; 80053; 82306; 84443; 85025

== ENCOUNTER → 2024-06-08 | Outpatient (CLI) | payer MEDICARE, SELFPAY ==
[2024-06-08 10:09] LABS: Absolute Lymphocyte Count 1.04 X10^3/uL (0.83-4.51); Absolute Neutrophil Count 2.7 X10^3/uL (2.0-7.7); Basophil# 0.03 X10^3/uL; Basophil% 0.7 % (0-1); Eosinophil# 0.12 X10^3/uL; Eosinophils% 2.7 % (0-5); Hematocrit 42.7 % (40-54); Hemoglobin 13.9 g/dL (13.0-16.5); Lymphocyte # 1.04 X10^3/ul (0.83-4.51); Lymphocyte % 23.4 % (19-41); Mean Corp Hgb Conc 32.6 g/dL (32-36); Mean Corpuscular Hgb 29.8 pg (27.0-32.0); Mean Corpuscular Volume 91.4 fL (80-94); Monocyte# 0.57 X10^3/uL; Monocyte% 12.8 % (0-10); NRBC Flagged by Analyzer 0 % (0-5); Neutrophil # 2.67 X10^3/uL (2.7-7.7); Platelet Count 178 K/mm3 (150-450); RBC Distribution Width CV 12.6 % (11.6-14.6); RBC Distribution Width SD 41.8 fl (35.1-43.9); Red Blood Count 4.67 M/mm3 (4.6-6.2); White Blood Count 4.5 K/mm3 (4.4-11.0)
[2024-06-08 10:37] LABS: Vitamin D,25 Hydroxy 34.3 ng/mL
[2024-06-08 10:44] LABS: AST(SGOT) 19 U/L (15-37); Alanine Aminotransfer ALT/SGPT 18 U/L (16-61); Albumin, Serum 3.5 g/dL (3.2-5.0); Alkaline Phosphatase 81 U/L (45-117); Anion Gap 3 (5-15); BUN 20 mg/dL (7-18); BUN/Creat Ratio 21.7 RATIO (10-20); Calcium,Total 9.1 mg/dL (8.5-10.1); Chloride 107 mmol/L (98-107); Cholesterol 158 mg/dL (200); Creatinine, Serum 0.92 mg/dL (0.70-1.30); EST Glomerular Filtration Rate 85 mL/min (>60); Est Glom Filt Rate - Afr Amer 103 mL/min (>60); Globulin 3.4 g/dL (2.2-4.2); Glucose 94 mg/dL (74-106); High Density Lipoprotein 55 mg/dL; Potassium 3.9 mmol/L (3.5-5.1); Protein, Total 6.9 g/dL (6.4-8.2); Sodium Level 141 mmol/L (136-145); Triglycerides 105 mg/dL; Very Low Density Lipoprotein 21 mg/dL (5-40)
== END | disposition home or self-care (01) ==
LOC: LAB 09:47
PROVIDERS: PCP Family Medicine Geriatric Medicine; Referring Provider Family Medicine Geriatric Medicine; Visit Provider Family Medicine Geriatric Medicine
DX: I10 Essential (primary) hypertension (principal); E55.9 Vitamin D deficiency, unspecified; E78.5 Hyperlipidemia, unspecified
CPT/HCPCS: 36415; 80053; 80061; 82306; 84443; 85025

== ENCOUNTER 2024-09-03 05:21 | Emergency (ER) | payer MEDICARE, SELFPAY ==
[2024-09-03 05:22] VITALS: BP 180/99; PULSE 78; RESP 16; TEMP 36.8; O2SAT 98; BMI 21.0
[2024-09-03 05:40] VITALS: O2SAT 98
--- NOTE | 2024-09-03 05:40 | EKG12_ITS ---
Test Reason : CP Blood Pressure : */* mmHG Vent. Rate : 77 BPM Atrial Rate : 77 BPM P-R Int : 190 ms QRS Dur : 90 ms QT Int : 384 ms P-R-T Axes : 64 32 72 degrees QTcB Int : 434 ms Normal sinus rhythm Nonspecific ST abnormality Abnormal ECG Confirmed by Tenzin Martinez ([id number]), editor dictionary MILANA LAWRENCE ([id number]) on 09/05/2024 9:02:55 AM Referred By: Confirmed By: Tenzin Martinez
--- NOTE | 2024-09-03 05:40 | EDS_ITS ---
HPI History of Present Illness Chief Complaint: Chest Pain Narrative Narrative: 74-year-old male presents with his because of chest pain and diaphoresis that he experienced this morning. He relates history that the day before yesterday he may have felt subjective fever. He has an occasional cough but no sore throat or runny nose. He became concerned because he has history of hypertension and hyperlipidemia but no prior coronary artery disease or stenting. He awoke this morning at 430, approximately an hour ago, drenched in sweat. He then began having twinges of pain on the left side of his chest that lasted only 10 seconds. They became somewhat more frequent and would not go away. He denies any leg swelling. No other exacerbating or alleviating factors. No nausea or vomiting, no shortness of breath. [facility] Medical History Hyperlipemia Home Medications ?Medication ?Instructions ?Recorded ?Last Taken ?Type lisinopril 20 2 ea PO DAILY 06/13/15 Unkno wn History mg-hydrochlorothiazide 12.5 mg tablet (Zestoretic) simvastatin 20 mg tablet 20 mg PO QHS 06/13/15 Unknow n History pantoprazole 40 mg tablet,delayed 40 mg PO DAILY PRN a diana reflux 09/03/24 Unknown History release Allergy/AdvReac Type Severity Reaction Status Date / Time nitroglycerin Allergy Anaphylaxis Verified 09/03/24 05:22 Social History Smoking Status: Never smoker ROS ROS ED ROS Narrative Review of systems positive for left-sided chest pain lasting 10 seconds in duration, intermittent. Positive diaphoresis. Negative for fever, possibly chilled a few days ago. Occasional cough. No runny nose/rhinorrhea, no sore throat. No shortness of breath. No pedal edema. EXAM Physical Exam Narrative Exam Narrative: Afebrile. Vital signs noted. Nontoxic-appearing. Cardiovascular examination reveals a regular rate and rhythm. Lungs are clear to auscultation bilaterally. Abdomen is soft and nontender without guarding or rebound, positive bowel sounds. Neurological examination is nonfocal, nonlateralizing. He is awake, alert, and interactive. No pedal edema appreciated bilaterally. Const Vital Signs: 09/03/24 05:22 09/03/24 05:22 09/03/24 05:40 Temperature 98.2 F Temperature Source Oral Pulse Rate 78 Respiratory Rate 16 Respiratory Effort Normal Non-Labored Blood Pressure 180/99 H Blood Pressure Mean 126 Pulse Ox 98 98 Oxygen Delivery Method Room Air Room Air 09/03/24 06:22 Temperature Temperature Source Pulse Rate 67 Respiratory Rate 15 Respiratory Effort Blood Pressure 140/82 H Blood Pressure Mean 101 Pulse Ox 98 Oxygen Delivery Method Room Air MDM MDM MDM Narrative Medical decision making narrative: Differential diagnosis includes but not limited to hypertensive urgency versus emergency versus ACS versus pneumonia versus pneumothorax. Patient is afebrile here. Initially his blood pressure was elevated at 180/99 but has come down on its own to 155 systolic. Chest pain workup was pursued. EKG was obtained and interpreted by myself independently as normal sinus rhythm at 77 bpm without ectopy or acute ST elevation. No STEMI. Chest x-ray 1 view interpreted by myself independently shows no evidence of pneumonia or pneumothorax. I reviewed the radiology report which confirms my independent interpretation. I reviewed his laboratory work, and he has normal white count of 7.1 with hemoglobin normal at 13.6, hematocrit 39.7, platelet count normal at 171. Sodium is normal at 139 with potassium 3.3, CO2 24.5, BUN 14 and creatinine 1.02. Glucose elevated at 104 but normal anion gap of 11. Initial high-sensitivity troponin is 12. His blood pressure has come down to 140/82 without intervention. Repeat examination shows him resting comfortably on the cot. At this point in time, his second troponin is still pending. I do feel that should it be negative that he could be discharged to have outpatient stress testing performed. This is secondary to the high-sensitivity troponins. Patient will be signed out to the oncoming physician who will make final disposition on the patient. He is in stable condition currently. History & Record Review Discussion w/independent historian: Patient Additional record(s) reviewed:: Prior ED visit (Prior chest pain in 2016 with admission.) Lab Data Attestation: I reviewed the patient's lab results. Labs: Laboratory Results - last 24 hr 09/03/24 05:30 WBC 7.1 RBC 4.42 L Hgb 13.6 Hct 39.7 L MCV 89.8 MCH 30.8 MCHC 34.3 RDW Std Deviation 40.7 RDW Coeff of Alex 12.2 Plt Count 171 MPV 10.0 Immature Gran % (Auto) 0.700 Neut % (Auto) 61.8 Lymph % (Auto) 23.8 [place] % (Auto) 10.6 H Eos % (Auto) 2.5 Baso % (Auto) 0.6 Absolute Neuts (auto) 4.4 Absolute Lymphs (auto) 1.68 Nucleated RBC % 0 Sodium 139 Potassium 3.3 Chloride 104 Carbon Dioxide 24.5 Anion Gap 11 BUN 14 Creatinine 1.02 Estim Creat Clear Calc 68.41 Est GFR (MDRD) Non-Af 76 BUN/Creatinine Ratio 13.8 Glucose 104 H Calcium 9.0 Troponin T High Sens 12 Radiography Chest X-Ray - ED: 1 View, Read by ED Physician, Read by Radiologist and No Acute Disease Diagnostic Testing: Clinical Impression(s) from Imaging Studies Chest X-Ray 09/03/24 05:40 IMPRESSION: No evidence of acute disease. Reading Location: [facility] Discharge Plan Triage Chief Complaint: Chest Pain ED Provider: [place] Dx/Rx/DC Orders Clinical Impression: Chest pain, Hypertension Instructions: ED Chest Pain, Uncertain Cause Prescriptions: No Action lisinopril-hydrochlorothiazide [Zestoretic] 1 EACH tablet 2 ea PO DAILY simvastatin 20 MG tablet 20 mg PO QHS pantoprazole 40 MG tablet 40 mg PO DAILY PRN (Reason: acid reflux) Primary Care Provider: Andre Mehta Chi Referrals: Andre Mehta Chi, MD [Primary Care Provider] - 3-5 Days Activity Restrictions/Additional Instructions: Follow-up with your primary care provider. You should probably still have outpatient stress testing performed. Return to the emergency department with increased chest pain, new or worsening symptoms. Print Language: Guatemalan
--- NOTE | 2024-09-03 05:40 | RAD_ITS ---
PROCEDURE: CHEST 1 VIEW (PORTABLE) 09/03/2024 REASON FOR EXAM: CHEST PAIN TECHNIQUE: Frontal view of the chest. 2 total images to include the entire chest COMPARISON: None available FINDINGS: The lungs appear clear. Pulmonary vascularity appears within limits. No pleural effusion seen. The cardiac and mediastinal contours appear within limits. Right acromioclavicular joint osteoarthrosis. RAD/Chest 1 View (Portable) IMPRESSION: No evidence of acute disease. Reading Location: [id number]
[2024-09-03 05:47] LABS: Absolute Lymphocyte Count 1.68 X10^3/uL (0.83-4.51); Absolute Neutrophil Count 4.4 X10^3/uL (2.0-7.7); Basophil# 0.04 X10^3/uL; Basophil% 0.6 % (0-1); Eosinophil# 0.18 X10^3/uL; Eosinophils% 2.5 % (0-5); Hematocrit 39.7 % (40-54); Hemoglobin 13.6 g/dL (13.0-16.5); Lymphocyte # 1.68 X10^3/ul (0.83-4.51); Lymphocyte % 23.8 % (19-41); Mean Corp Hgb Conc 34.3 g/dL (32-36); Mean Corpuscular Hgb 30.8 pg (27.0-32.0); Mean Corpuscular Volume 89.8 fL (80-94); Monocyte# 0.75 X10^3/uL; Monocyte% 10.6 % (0-10); NRBC Flagged by Analyzer 0 % (0-5); Neutrophil # 4.37 X10^3/uL (2.7-7.7); Neutrophil % 61.8 % (47-70); Platelet Count 171 K/mm3 (150-450); RBC Distribution Width CV 12.2 % (11.6-14.6); RBC Distribution Width SD 40.7 fl (35.1-43.9); Red Blood Count 4.42 M/mm3 (4.6-6.2); White Blood Count 7.1 K/mm3 (4.4-11.0)
[2024-09-03] MEDS: Aspirin 81 MG TAB.CHEW 324 MG PO (05:51)
[2024-09-03 06:17] LABS: Anion Gap 11 (5-15); BUN 14 mg/dL (4-19); BUN/Creat Ratio 13.8 RATIO (10-20); Carbon Dioxide 24.5 mmol/L (21.0-32.0); Chloride 104 mmol/L (98-108); Creatinine, Serum 1.02 mg/dL (0.70-1.20); EST Glomerular Filtration Rate 76 (>60); Estimated Creatinine Clearance 68.41 ml/min (50-250); Glucose 104 mg/dL (70-99); Potassium 3.3 mmol/L (3.3-5.1); Sodium Level 139 mmol/L (133-145); Troponin T High Sensitivity 12 ng/L (<=22)
[2024-09-03 06:22] VITALS: BP 140/82; PULSE 67; RESP 15; O2SAT 98
[2024-09-03 07:08] VITALS: BP 122/71; PULSE 67; RESP 12; O2SAT 97
[2024-09-03 08:14] VITALS: BP 148/76; PULSE 68; RESP 16; O2SAT 100
[2024-09-03 08:16] LABS: Troponin T High Sens 2 HR 12 ng/L (<=22)
[2024-09-03 08:44] VITALS: BP 120/64; PULSE 64; RESP 14; TEMP 36.7; O2SAT 96
== END 2024-09-03 08:45 | disposition home or self-care (01) ==
PROVIDERS: Emergency Provider Emergency Medicine; PCP Family Medicine Geriatric Medicine; Visit Provider Emergency Medicine
DX: R07.9 Chest pain, unspecified (principal); E78.5 Hyperlipidemia, unspecified; I10 Essential (primary) hypertension
CPT/HCPCS: 71045; 80048; 84484; 85025; 93005; 99285; A4216

== ENCOUNTER → 2024-09-05 | Outpatient (CLI) | payer MEDICARE, SELFPAY ==
[2024-09-05 17:25] LABS: Anion Gap 10 (5-15); BUN 19 mg/dL (4-19); BUN/Creat Ratio 20.7 RATIO (10-20); Calcium,Total 9.4 mg/dL (7.6-11.0); Carbon Dioxide 26.7 mmol/L (21.0-32.0); Chloride 106 mmol/L (98-108); EST Glomerular Filtration Rate 89 (>60); Glucose 103 mg/dL (70-99); Potassium 4.1 mmol/L (3.3-5.1); Sodium Level 142 mmol/L (133-145)
== END | disposition home or self-care (01) ==
LOC: LAB 14:39
PROVIDERS: PCP Family Medicine Geriatric Medicine; Referring Provider Family Medicine Geriatric Medicine; Visit Provider Family Medicine Geriatric Medicine
DX: R50.9 Fever, unspecified (principal); I10 Essential (primary) hypertension
CPT/HCPCS: 36415; 80048; 87631